=== PATIENT | female | born 1965 | race African-American/Black ===

== ENCOUNTER 2019-02-28 16:21 | Emergency (ER) | payer SELFPAY ==
[2019-02-28 17:03] VITALS: BP 156/96
[2019-02-28] MEDS ORDERED: PREDNISONE 20 MG TABLET PO ONE (17:12)
[2019-02-28] MEDS ORDERED: IPRATROPIUM/ALBUTEROL 0.5-2.5 MG/3 ML AMPUL NEB ONE (17:12)
--- NOTE | 2019-02-28 17:14 | ER Document Report ---
ED Medical Screen (RME) - General Stated Complaint: CHEST PAIN Time Seen by Provider: 02/28/19 17:11 Primary Care Provider: MURTAZA JEFFERSON MD [Primary Care Provider] - Follow up as needed Information source: Patient Notes: Patient presents complaining of cough wheezing and chest pain for the past week. Patient reports pain is to the right side of her chest. Patient denies any nausea or vomiting. I have greeted and performed a rapid initial assessment of this patient. A comprehensive ED assessment and evaluation of the patient, analysis of test results and completion of the medical decision making process will be conducted by additional ED providers. TRAVEL OUTSIDE OF THE [place] IN LAST 30 DAYS: No Past Medical History - Past Medical History Cardiac Medical History: Reports: Hx Hypertension - Immunizations Hx Diphtheria, Pertussis, Tetanus Vaccination: No Physical Exam - Vital signs Vitals: Temp Pulse Resp BP Pulse Ox 98.2 F 89 20 156/96 H 92 02/28/19 17:01 02/28/19 17:01 02/28/19 17:01 02/28/19 17:01 02/28/19 17:01 - Respiratory Respiratory status: No respiratory distress Chest status: Pain with cough Breath sounds: Nonproductive cough, Wheezing Course - Re-evaluation Re-evalutation: 02/28/19 17:14 Patient refusing any laboratory tests or blood draws. - Vital Signs Vital signs: Temp Pulse Resp BP Pulse Ox 98.2 F 89 20 156/96 H 92 02/28/19 17:01 02/28/19 17:01 02/28/19 17:01 02/28/19 17:01 02/28/19 17:01 Doctor's Discharge - Discharge Referrals: MURTAZA JEFFERSON MD [Primary Care Provider] - Follow up as needed
--- NOTE | 2019-03-01 07:56 | EKG REPORT ---
SEVERITY:- ABNORMAL ECG - SINUS RHYTHM BIATRIAL ABNORMALITIES BORDERLINE PROLONGED QT INTERVAL NONSPECIFIC IVCD : Confirmed by: Acosta Arroyo MD 01-Mar-2019 07:56:08
== END 2019-02-28 17:58 | disposition left against medical advice (07) ==
LOC: ER 16:21
DX: Z53.21 Procedure and treatment not carried out due to patient leaving prior to being seen by health care provider (principal); R07.9 Chest pain, unspecified; R05 Cough; R06.2 Wheezing
CPT/HCPCS: 93005; 93010; 99281